=== PATIENT | female | born 1970 | race Caucasian/White ===

== ENCOUNTER 2016-04-22 09:28 | Emergency (ER) | payer SELFPAY ==
[~2016-04-22] VITALS: Ht 154.9 cm; Wt 66.0 kg
[~2016-04-22 09:28] MED LIST: CIPR-9 PO; NORC5TAB PO
[2016-04-22 09:30] VITALS: BP 124/76; PULSE 86; RESP 16; TEMP 97.5; O2SAT 97
--- NOTE | 2016-04-22 10:14 | PD ---
HPI Chief Complaint: Fall Time Seen by Provider: 10:14 Travel History International Travel<30 days: No Contact w/Intl Traveler<30days: No Traveled to known affect area: No History of Present Illness HPI 45-year-old female presents to the emergency department for evaluation of right knee pain and left anterior chest wall pain after a trip and fall that occurred yesterday morning at 8:15. She states she was walking when she tripped over a piece of metal landing on her right knee and chest wall. She denies hitting her head or losing consciousness. She denies any headache or visual changes. No neck pain or upper back pain. No abdominal pain. No vomiting. She denies any hip or pelvic pain. Patient does report an abrasion to her left medial hand. She states her tetanus immunization is not up-to-date. She has no chronic medical problems and takes no medications. Patient denies any other complaints at this time. She does report a history of surgery to the right knee. Patient denies any chance of . PFSH Past Medical History Anxiety: Yes Depression: Yes Diminished Hearing: No Gastrointestinal Disorders: Yes Musculoskeletal: Yes (LUMBAR HERNIATED DISKS. ) Neurologic: Yes (Herniated lumbard disc) Reproductive: Yes (OVARIAN CYSTS/ENDOMETRIOSIS) Immunizations Current: Yes Pancreatitis: Yes Menopausal: Yes : 3 Para: 3 Tubal Ligation: Yes Past Surgical History Appendectomy: Yes (LAP) Gynecologic Surgery: Yes (EXP LAP) Hysterectomy: Yes (PARTIAL HYSTERECTOMY) Other Surgery: Yes Social History Alcohol Use: No Tobacco Use: Yes (1 PPD) Substance Use: Yes (Hx: IV drug user -Dilaudid ) Allergies-Medications (Allergen,Severity, Reaction): Coded Allergies: Penicillin (Verified Allergy, Severe, "MY MOM SAYS IT WILL MAKE MY HEART STOP"- NEVER TAKEN PCN, 04/22/16) Sulfa (Verified Allergy, Severe, "MY MOM SAYS IT WILL MAKE MY HEART STOP" - NEVER TAKEN SULFA, 04/22/16) Reported Meds & Prescriptions Reported Meds & Active Scripts Active Cipro (Ciprofloxacin HCl) 500 Mg Tab 500 Mg PO BID [place] (Hydrocodone-Acetaminophen) 5-325 mg Tab 1 Tab PO Q6H PRN Review of Systems Except as stated in HPI: all other systems reviewed are Neg Physical Exam Narrative GENERAL: Well-developed well-nourished female patient, afebrile. SKIN: Warm and dry. Patient has small superficial abrasion to the left medial hand. Ecchymosis is noted to the right anterior knee. HEAD: Normocephalic. Atraumatic. EYES: No scleral icterus. No injection or drainage. NECK: Supple, trachea midline. No JVD or lymphadenopathy. CARDIOVASCULAR: Regular rate and rhythm without murmurs, gallops, or rubs. RESPIRATORY: Breath sounds equal bilaterally. No accessory muscle use. Lungs sounds are clear to auscultation. GASTROINTESTINAL: Abdomen soft, non-tender, nondistended. MUSCULOSKELETAL: No cyanosis, or edema. Patient has tenderness over left anterior chest wall. Patient also has tenderness over left anterior knee. She has reduced flexion of the right knee due to pain. BACK: Nontender without obvious deformity. No CVA tenderness. No midline spinal tenderness. Data Data Last Documented VS Vital Signs Date Time Temp Pulse Resp B/P Pulse Ox O2 Delivery O2 Flow Rate FiO2 04/22/16 09:30 97.5 86 16 124/76 97 Room Air Orders Chest, Single Ap (04/22/16 ) Knee, Complete (4vws) (04/22/16 ) Ketorolac Inj (Toradol Inj) (04/22/16 10:15) Tetanus/Diphtheria Tox Adult (Tetanus/Di (04/22/16 10:15) Splint Or Brace Apply/Monitor (04/22/16 11:21) Crutches (04/22/16 11:21) MDM Medical Decision Making Medical Screen Exam Complete: Yes Emergency Medical Condition: Yes Medical Record Reviewed: Yes Interpretation(s) Last Impressions Knee X-Ray 04/22/16 0000 Signed Impressions: Service Date/Time: April 10:55 - CONCLUSION: 1. Large suprapatellar knee joint effusion. 2. Moderate osteoarthritis involving the patellofemoral and femoral tibial joints. 3. No acute fracture or dislocation. Donnie Morales MD Chest X-Ray 04/22/16 0000 Signed Impressions: Service Date/Time: April 10:53 - CONCLUSION: No acute disease. Donnie Morales MD Differential Diagnosis Contusion versus fracture versus dislocation Narrative Course 45-year-old female presents to the emergency department for evaluation of right knee and left chest wall pain after a trip and fall yesterday morning. Tetanus immunization is updated. Patient is given Toradol 60 mg IM. X-ray of the right knee and x-ray of the chest are ordered and pending. X-ray of the right knee shows a large suprapatellar knee joint effusion, moderate osteoarthritis, no acute fracture dislocation. X-ray of the chest shows no acute disease. Patient is given a hinged knee brace for support. She is also provided crutches. She is instructed to follow-up with an orthopedist if pain continues or worsens. Patient will be discharged with a prescription for ibuprofen. Patient is agreeable to this plan. Diagnosis Primary Impression: Contusion of right knee Qualified Code: S80.01XA - Contusion of right knee, initial encounter Additional Impression: Chest wall contusion Qualified Code: S20.212A - Chest wall contusion, left, initial encounter Referrals: Orthopedist call for appointment Patient Instructions: Contusion in Adults (ED), General Instructions Additional Instructions: Wear knee brace and use crutches as needed for support. Elevate. Ice for 20 minutes 4-5 times daily. Follow-up with a primary care physician orthopedist if pain continues or worsens. Return to the emergency department for any acute worsening of symptoms. Med/Other Pt SpecificInfo: Prescription(s) given Scripts Ibuprofen 600 Mg [id number] Mg PO TID PRN (PAIN SCALE 1 TO 10) #21 TAB Ref 0 Prov:Angy Naik 04/22/16 Disposition: 01 DISCHARGE HOME Condition: Stable Angy Naik Apr 22, 2016 10:14
[2016-04-22] MEDS ORDERED: KETOROLAC TROMETHAMINE 60 MG/2 ML (IM) VIAL IM ONE (10:15)
[2016-04-22] MEDS ORDERED: TETANUS/DIPHTHERIA TOXOID ADULT 0.5 ML VIAL IM ONE (10:15)
--- NOTE | 2016-04-22 10:57 | RADRPT ---
EXAM DATE/TIME: 04/22/2016 10:53 [facility] COMPARISON: No previous studies available for comparison. INDICATIONS : Chest pain after falling flat on chest. MEDICAL HISTORY : None. SURGICAL HISTORY : None. ENCOUNTER: Initial ACUITY: 2 days PAIN SCORE: 9/10 LOCATION: Bilateral chest FINDINGS: A single view of the chest demonstrates the lungs to be symmetrically aerated without evidence of mas s, infiltrate or effusion. The cardiomediastinal contours are unremarkable. Osseous structures are intact. CONCLUSION: No acute disease. Donnie Morales MD on April 22, 2016 at 10:55 Board Certified Radiologist. This report was verified electronically.
--- NOTE | 2016-04-22 11:06 | RADRPT ---
EXAM DATE/TIME: 04/22/2016 10:55 [facility] COMPARISON: No previous studies available for comparison. INDICATIONS: Right knee pain after fall. MEDICAL HISTORY: None. SURGICAL HISTORY: Right knee scope. ENCOUNTER: Initial ACUITY: 2 days PAIN SCORE: 10/10 LOCATION: Right anterior knee. FINDINGS: There is a large suprapatellar knee joint effusion. Moderate osteoarthritis is noted involving the p atellofemoral and femoral tibial joints. There is no acute fracture or dislocation of the right knee . CONCLUSION: 1. Large suprapatellar knee joint effusion. 2. Moderate osteoarthritis involving the patellofemoral and femoral tibial joints. 3. No acute fracture or dislocation. oDnnie Morales MD on April 22, 2016 at 10:57 Board Certified Radiologist. This report was verified electronically.
[2016-04-22] MEDS ORDERED: IBUP-232 PO (11:25)
== END 2016-04-22 11:38 | disposition home or self-care (01) ==
LOC: NEPB 09:28
DX: F17.210 Nicotine dependence, cigarettes, uncomplicated (principal); S80.01XA Contusion of right knee, initial encounter; S20.212A Contusion of left front wall of thorax, initial encounter; W01.0XXA Fall on same level from slipping, tripping and stumbling without subsequent striking against object, initial encounter
CPT/HCPCS: 71010; 73564; 90471; 90714; 96372; 99283; E0113; J1885; L1810

== ENCOUNTER 2016-08-04 10:07 | Emergency (ER) | payer SELFPAY ==
[~2016-08-04] VITALS: Ht 154.9 cm; Wt 64.0 kg
[~2016-08-04 10:07] MED LIST changes: +IBUP-232 PO
[2016-08-04 10:08] VITALS: BP 118/60; PULSE 62; RESP 15; TEMP 98; O2SAT 98
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
[2016-08-04] MEDS ORDERED: METHOCARBAMOL 500 MG TAB PO ONE (11:00)
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
[2016-08-04] MEDS ORDERED: ROBA500T PO (12:13)
[2016-08-04] MEDS ORDERED: IBUP800T23 PO (12:13)
[2016-08-04] MEDS ORDERED: KETOROLAC TROMETHAMINE 60 MG/2 ML (IM) VIAL IM ONE (12:15)
== END 2016-08-04 12:37 | disposition home or self-care (01) ==
LOC: NEPK 10:07
DX: S20.219A Contusion of unspecified front wall of thorax, initial encounter (principal); S80.01XA Contusion of right knee, initial encounter; S00.83XA Contusion of other part of head, initial encounter; S10.93XA Contusion of unspecified part of neck, initial encounter; F17.200 Nicotine dependence, unspecified, uncomplicated; Y04.2XXA Assault by strike against or bumped into by another person, initial encounter; Z86.59 Personal history of other mental and behavioral disorders; Z87.19 Personal history of other diseases of the digestive system; Z87.39 Personal history of other diseases of the musculoskeletal system and connective tissue; Z86.69 Personal history of other diseases of the nervous system and sense organs; Z87.42 Personal history of other diseases of the female genital tract
CPT/HCPCS: 70450; 71010; 73564; 96372; 99284; J1885

== ENCOUNTER 2017-06-03 18:00 | Emergency (ER) | payer SELFPAY ==
[~2017-06-03] VITALS: Ht 154.9 cm; Wt 68.0 kg
[~2017-06-03 18:00] MED LIST changes: -CIPR-9 PO; -IBUP-232 PO; +IBUP1TAB7 PO; -NORC5TAB PO; +ROBA500T PO
[2017-06-03 18:01] VITALS: BP 139/88; PULSE 111; RESP 18; TEMP 98.4; O2SAT 97
--- NOTE | 2017-06-03 19:02 | RADRPT ---
EXAM DATE/TIME: 06/03/2017 18:42 [facility] COMPARISON: KNEE RIGHT COMPLETE (4VWS), August 04, 2016, 11:22. INDICATIONS : Right knee pain with no history of trauma. MEDICAL HISTORY : None. SURGICAL HISTORY : surgery to right knee many years ago ENCOUNTER: Initial ACUITY: 2 months PAIN SCORE: 10/10 LOCATION: Right knee FINDINGS: Four view examination of the right knee demonstrates no evidence of fracture or dislocation. Bony mi neralization is normal. Progressive tricompartmental degenerative osteoarthritis most prominently in the lateral and patellofemoral compartments. Small suprapatellar effusions or to prior exam. CONCLUSION: 1. Progressive mild tricompartmental degenerative osteoarthritis, most prominent in the lateral and p atellofemoral compartments. 2. Stable small joint effusion. Kleber Briseno MD on June 03, 2017 at 18:59 Board Certified Radiologist. This report was verified electronically.
== END 2017-06-03 21:53 | disposition left against medical advice (07) ==
LOC: NED 18:00
DX: M25.561 Pain in right knee (principal); M17.11 Unilateral primary osteoarthritis, right knee; M25.461 Effusion, right knee; Z53.21 Procedure and treatment not carried out due to patient leaving prior to being seen by health care provider
CPT/HCPCS: 73564; 99281